=== PATIENT | female | born 1970 | race Caucasian/White ===

== ENCOUNTER → 2022-03-19 | Day surgery (SDC) | payer BC ==
--- NOTE | 2022-03-19 21:11 | RAD REPORT ---
EXAM DESCRIPTION: US - Breast Core BX w/US Guidance - 03/19/2022 11:43 am CLINICAL HISTORY: T85.44XA COMPARISON: Diagnostic mammogram 01/08/2022, bilateral breast ultrasound 01/08/2022 TECHNIQUE: The patient presents for ultrasound-guided biopsy of a previously detailed left retroareo lar breast mass. The ultrasound-guided core biopsy procedure, risks and alternatives were discussed with the patient i n detail. After answering all questions, both oral and written consent were obtained. Time out proced ure was performed. The patient had no contraindicated allergy or medication history. Preliminary imaging identified the left retro areolar 1.7 cm breast mass. Anterior or superficial mar gin of the mass abuts the skin surface. The deep margin of the mass abuts the fibrous capsule of the implant. Where the mass abuts the fibrous capsule, there is a small 3 mm sized hypoechoic focus that may be a small rent or disruption of the capsule. The left breast was prepped and draped in the usual sterile fashion. From a(n) lateral approach, skin and deeper tissues were anesthetized with 1% lidocaine. The 25 gauge lidocaine needle was seen to de pressed but not puncture the outer margin of the mass. Due to the limited amount of tissue between th e implant capsule in the skin surface, an 18 gauge needle was selected for biopsy. Under direct sonographic visualization the 18 gauge core biopsy needle was advanced and placed at the margin of the mass. This needle uses manual pressure to advance the needle through the mass and/or t o extend the inner notched needle into the mass. The periphery of the mass could not be penetrated us ing manual pressure. Either the inner needle would not advance or the tip would deflect off of the ma ss using manual pressure. A 12 gauge vacuum assisted biopsy needle was then utilized for tissue sampl ing. Using the same access and using ultrasound guidance, the tip of the biopsy needle was placed on the lateral margin of the mass. A 2 cm core biopsy was obtained. Two additional biopsies were obtaine d. All material was given to pathology for cytology/histology assessment. The needle was seen to david erse the mass. There was some distortion in contour the mass indicating the needle transited through the mass. There were a total of 3 core biopsies obtained under direct sonographic guidance. There is no indication the biopsy needle contact the skin surface or the implant capsule. The majority of the obtained material was crimson colored semi liquid material with small amounts of solid tissue. Confidence is high that the core biopsies have sampled material or tissue within the ma ss. The sampled material lacks the typical solid core usually seen with a fibroadenoma. Internal echo genicity of the mass is similar to the silicone. A silicone granuloma or extracapsular silicone leak with reactive fibrous capsule would be a differential consideration. Malignancy, mostly necrotic, is not felt to be likely but cannot be excluded. No localization clip was placed. The patient indicated that she is pending implant removal and that t he biopsy is to rule in or rule out malignancy prior to surgery. Post biopsy imaging showed no hematoma or measurable bleeding within the breast. Hemostasis was obtai emperatriz at the skin site with a sterile bandage placed. Post procedure care and precaution instructions were given to the patient. IMPRESSION: 1. Ultrasound-guided core biopsy was performed of the left breast mass. All obtained mat erial was given to pathology for histologic assessment. 2. There were no immediate complications. Post procedure care and precaution instructions were given to the patient. 3. The obtained biopsy tissue or material did not demonstrate atypical dense core of a fibroadenoma. Malignant etiology is felt to be low but not excluded. Silicone granuloma or an extracapsular gel malik k is a consideration. Final pathology is pending.
== END ==
LOC: DS 09:53
PROVIDERS: ATTEND Plastic Surgery
DX: T85.44XA Capsular contracture of breast implant, initial encounter (principal); Z98.82 Breast implant status
CPT/HCPCS: 19083; 88305